=== PATIENT | female | born 1955 | race Caucasian/White ===

== ENCOUNTER 2021-04-05 13:41 | Outpatient (REF) | payer MEDICARE, MEDICAID, SELFPAY ==
[2021-04-07 14:12] LABS: COVID-19 RT-PCR UVMMC Result Negative (Negative)
== END 2021-04-05 13:42 | disposition home or self-care (01) ==
LOC: NCHCN 13:41
PROVIDERS: PCP Physician Assistant; Visit Provider Physician Assistant
DX: Z20.822 Contact with and (suspected) exposure to COVID-19 (principal)
CPT/HCPCS: U0003

== ENCOUNTER 2021-05-19 15:14 | Outpatient (REF) | payer MEDICARE, MEDICAID, SELFPAY ==
[2021-05-20 07:58] LABS: Calcium 9.3 mg/dL (8.5-10.1)
[2021-05-20 07:59] LABS: Anion Gap 10.7 mmol/L (3-11); BUN 13 mg/dL (7-18); CO2 27.3 mmol/L (21.0-32.0); CREATININE 0.8 mg/dL (0.55-1.02); Calculated LDL 119 mg/dL (<100); Chloride 108 mmol/L (98-107); Cholesterol 220 mg/dL (<200); Glucose 105 mg/dL (74-106); HDL Cholesterol 78 mg/dL (40-60); Potassium 4.1 mmol/L (3.5-5.1); Sodium 146 mmol/L (136-145); Triglyceride 116 mg/dL (<150)
== END 2021-05-19 15:15 | disposition home or self-care (01) ==
LOC: NCHCN 15:14
PROVIDERS: PCP Physician Assistant; Visit Provider Physician Assistant
DX: G25.0 Essential tremor (principal); F32.9 Major depressive disorder, single episode, unspecified; G43.909 Migraine, unspecified, not intractable, without status migrainosus; Z87.898 Personal history of other specified conditions; Z13.220 Encounter for screening for lipoid disorders
CPT/HCPCS: 80048; 80061

== ENCOUNTER 2023-05-25 09:38 | Outpatient (REF) | payer MEDICARE, MEDICAID, SELFPAY ==
[2023-05-25 19:04] LABS: Hemoglobin A1C 5.1 % (<5.7)
[2023-05-25 19:12] LABS: ALT 23 U/L (14-59); AST 17 U/L (15-37); Albumin 3.7 g/dL (3.4-5.0); Alkaline Phosphatase 76 U/L (46-116); Anion Gap 7.5 mmol/L (3-11); BUN 14 mg/dL (7-18); Bilirubin, Total 0.4 mg/dL (0.2-1.0); CO2 30.5 mmol/L (21.0-32.0); CREATININE 0.8 mg/dL (0.55-1.02); Calcium 9.6 mg/dL (8.5-10.1); Calculated LDL 89 mg/dL (<100); Chloride 109 mmol/L (98-107); Cholesterol 193 mg/dL (<200); Estimated GFR 80.71 (mL/min/1.73m2); Glucose 86 mg/dL (74-106); HDL Cholesterol 81 mg/dL (40-60); Potassium 4.2 mmol/L (3.5-5.1); Sodium 147 mmol/L (136-145); Total Protein 6.8 g/dL (6.4-8.2); Triglyceride 119 mg/dL (<150)
== END 2023-05-25 09:39 | disposition home or self-care (01) ==
LOC: NCHCN 09:38
PROVIDERS: PCP Physician Assistant; Visit Provider Physician Assistant
DX: E78.5 Hyperlipidemia, unspecified (principal); R79.89 Other specified abnormal findings of blood chemistry
CPT/HCPCS: 80053; 80061; 83036

== ENCOUNTER 2024-05-28 09:28 | Outpatient (REF) | payer MEDICARE, MEDICAID, SELFPAY ==
--- OUTSIDE RECORDS SUMMARY | 2024-05-28 09:31 | XMS_ITS | Encounter Summary ---
Author Organization [facility] Address [address] [place] [address] Care Team Providers Care Physical Sciences Instructor Name Role Phone Unknown, Provider Primary Care Provider Kaelyn Cardona Primary Care Provider + Encounter Details Date Type Department Care Team (Late st Contact Info) Description 04/06/2021 Lab Requisition [facility] Pathology & Laboratory Medicine - [address] [address] Outr Resulting Lab, Provider Social History Tobacco Use Types Packs/Day Years Used Date Smoking Tobacco: Never Assessed Comments Unknown Sex and Gender Information Value Date Recorded Sex Assigned at Not on file Legal Sex Female 18:02 EST Gender Identity Not on file Sexual Orientation Not on file documented as of this encounter Plan of Treatment Not on file documented as of this encounter Procedures Procedure Name Priority Date/Time Associated Diagnosis Comments ZZCOVID-19 TEST [facility] PCR Today 04/05/2021 9:00 EDT COVID-19 TESTING Routine 04/05/2021 9:00 EDT documented in this encounter Results * COVID-19 TEST [facility] PCR (04/05/2021 9:00 EDT) Swab ENTIRE NASOPHARYNX / Unknown 04/05/2021 9:00 EDT 04/06/2021 16:17 EDT us Provider Outr Resulting Lab MICROBIOLOGY - GENER AL ORDERABLES Final Result [facility] [address] [place] [address] * COVID-19 TESTING (04/05/2021 9:00 EDT) COVID-19 rt-PCR Result Negative Negative 04/07/2021 14:05 EDT [facility] Comment: This test has not been FDA cleared or approved. This test has been authorized by FDA under an EUA for use by authorized laboratories. This test has been authorized only for detection of nucleic acid from 2019-nCoV, not for any other viruses or pathogens. This test is only authorized for the duration of the declaration that circumstances exist justifying the authorization of emergency use of in vitro diagnostic tests for detection and/or diagnosis of 2019-nCoV under section 564(b)(1) of Act, 21 U.S.C ?? 360bbb-3(b) (1), unless the authorization is terminated or revoked sooner. Negative results do not preclude 2019-nCoV infection and should not be used as the sole basis for treatment or other patient management decisions. Negative results must be combined with clinical observations, patient history, and epidemiological information. This test was developed and its performance characteristics determined by [facility]. It has not been cleared or approved by the US Food and Drug Administration. FDA does not require this test to go through premarket FDA review. This test is used for clinical purposes. It should not be regarded as investigational or for research. This laboratory is certified under the Clinical Laboratory Improvement Amendments (CLIA) as qualified to perform high complexity clinical laboratory testing. This test is based on the [facility] COVID-19 Emergency Use Authorization (EUA) assay, with minor modification as defined by the FDA Performed on the Temporal Powero 7 Pro RT-PCR System. Performing Lab [facility] 04/07/2021 14:05 EDT [facility] Swab 04/05/2021 9:00 EDT 04/06/2021 16:17 EDT us Provider Outr Resulting Lab MICROBIOLOGY - GENER AL ORDERABLES Final Result [facility] [address] [place] [address] documented in this encounter Visit Diagnoses Not on filedocumented in this encounter Care Teams Physical Sciences Instructor Relationship Specialty Start Date End Date Unknown, Provider, PCP - General 05/14/15 07/09/22 Kaelyn Tsang PA [address] [place] [id number] PCP - General 07/10/22 documented as of this encounter
--- OUTSIDE RECORDS SUMMARY | 2024-05-28 09:31 | XMS_ITS | Encounter Summary ---
Author Organization [facility] Address [address] [place] [address] Care Team Providers Care Record Systems Analyst Name Role Phone Unavailable Primary Care Provider Unavailabl e Encounter Details Date Type Department Care Team (Late st Contact Info) Description 12/12/2002 Results Only [facility] conversion [address] [place] [address] Kian Canseco MD Social History Tobacco Use Types Packs/Day Years [...] Procedure Name Priority Date/Time Associated Diagnosis Comments CYTOPATHOLOGY Routine 12/12/2002 0:00 EDT documented in this encounter Results * CYTOPATHOLOGY (12/12/2002 0:00 EDT) Pathology Report: CYTOPATHOLOGY REPORT Reports generated via electronic interface contain original data; however they are lacking the format of the original report. Caution should be taken when reading/interpreti ng unformatted reports. Name: ? NICANOR SEGOVIA ? Accession #: ? [id number] : ? 1955 (Age: 47) ??F ?Collect Date: ? 12/12/2002 Location: ? [facility] ? Receive Date: ? 12/16/2002 Provider: ?KIAN CANSECO MD Copy to: ? Specimen/Source: ?ThinPrep Pap Test, Cervix/Endocervix Last Menstrual Period: ? 11/06/02 Previous Gynecologic Pathology: ? Yes: Atypia HSIL: 1980 ASC-US: Treatment History: ? 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 HPVA - HPV testing requested if ASC-US on the current ThinPrep Pap test. ? SPECIMEN ADEQUACY ? Satisfactory for Evaluation - transformation zone component present GENERAL CATEGORIZATION ? Negative for Intraepithelial Lesion or Malignancy INTERPRETATION ? 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 ? Document reviewed and electronically signed by: ? Eddy Goff, YOLY(ASCP) ? Report Date: ??12/18/2002 09:09 End of Report [facility] 12/12/2002 12/16/2002 us Kian Canseco MD PATHOLOGY ORDERABLES Final Res ult [facility] [address] [place] [address] documented in this encounter Visit Diagnoses Not on filedocumented in this encounter
--- OUTSIDE RECORDS SUMMARY | 2024-05-28 09:31 | XMS_ITS | Encounter Summary ---
Author Organization [facility] Address [address] [place] [address] Care Team Providers Care Outpatient Admitting Clerk Name Role Phone Unavailable Primary Care Provider Unavailabl e Encounter Details Date Type Department Care Team (Late st Contact Info) Description 12/16/2003 Results Only [facility] conversion [address] [place] [address] Kian Canseco MD Social History Tobacco Use [...] Priority Date/Time Associated Diagnosis Comments CYTOPATHOLOGY Routine 12/16/2003 0:00 EDT documented in this encounter Results * CYTOPATHOLOGY (12/16/2003 0:00 EDT) Pathology Report: CYTOPATHOLOGY REPORT Reports generated via electronic interface contain original data; however they are lacking the format of the original report. Caution should be taken when reading/interpreti ng unformatted reports. Name: ? NICANOR SEGOVIA ? Accession #: ? [id number] : ? 1955 (Age: 48) ??F ?Collect Date: ? 12/16/2003 Location: ? [facility] ? Receive Date: ? 12/18/2003 Provider: ?KIAN CANSECO MD Copy to: ? Specimen/Source: ?ThinPrep Pap Test, Cervix/Endocervix Last Menstrual Period: ? 11/26/03 Other: ? HPVA - HPV testing requested if ASC-US on the current ThinPrep Pap test. ? SPECIMEN ADEQUACY ? Satisfactory for Evaluation - transformation zone component present GENERAL CATEGORIZATION ? Negative for Intraepithelial Lesion or Malignancy ? Document reviewed and electronically signed by: ? YOLY De Dios(ASCP) ? Report Date: ??12/23/2003 09:52 End of Report [facility] 12/16/2003 12/18/2003 us Kian Canseco MD PATHOLOGY ORDERABLES Final Res ult [facility] [address] [place] [address] documented in this encounter Visit Diagnoses Not on filedocumented in this encounter
--- OUTSIDE RECORDS SUMMARY | 2024-05-28 09:31 | XMS_ITS | Encounter Summary ---
Author Organization [facility] Address [address] [place] [address] Care Team Providers Care Rn Imaging Name Role Phone Unavailable Primary Care Provider Unavailabl e Encounter Details Date Type Department Care Team (Late st Contact Info) Description 10/03/2000 Results Only [facility] conversion [address] [place] [address] Kian Canseco MD Social History Tobacco Use [...] Priority Date/Time Associated Diagnosis Comments CYTOPATHOLOGY Routine 10/03/2000 0:00 EST documented in this encounter Results * CYTOPATHOLOGY (10/03/2000 0:00 EST) Pathology Report: CYTOPATHOLOGY REPORT Reports generated via electronic interface contain original data; however they are lacking the format of the original report. Caution should be taken when reading/interpreti ng unformatted reports. Name: ? NICANOR SEGOVIA ? Accession #: ? [id number] : ? 1955 (Age: 45) ??F ?Collect Date: ? 10/03/2000 Location: ? [facility] ? Receive Date: ? 10/06/2000 Provider: ?KIAN CANSECO MD Copy to: ? Specimen/Source: ?ThinPrep Pap Test, Cervix/Endocervix Last Menstrual Period: ? 09/19/00 Previous Gynecologic Pathology: ? HSIL ASC-US: , Treatment History: ? Cone biopsy: 1980 ? SPECIMEN ADEQUACY ? Satisfactory for evaluation. GENERAL CATEGORIZATION ? Within Normal Limits ? Document reviewed and electronically signed by: ? Morena Lindsey, ??SCT(ASCP) ? Report Date: ??10/09/2000 08:17 End of Report [facility] 10/03/2000 10/06/2000 us Kian Canseco MD PATHOLOGY ORDERABLES Final Res ult [facility] [address] [place] [address] documented in this encounter Visit Diagnoses Not on filedocumented in this encounter
--- OUTSIDE RECORDS SUMMARY | 2024-05-28 09:31 | XMS_ITS | Encounter Summary ---
Author Organization [facility] Address [address] [place] [address] Care Team Providers Care Rfid Strategist Name Role Phone Unknown, Provider Primary Care Provider Kaelyn Cardona Primary Care Provider + Encounter Details Date Type Department Care Team (Latest Contact Info) Description 04/09/2020 Lab Requisition [facility] Pathology & Laboratory Medicine - [facility] [address] [place] [address] Chon Bajwa MD [address] [place] [id number] Encounter for gynecological examination (general) (routine) without abnormal findings; Encounter for screening for human papillomavirus (HPV) Social History Tobacco Use Types Packs/Day Years [...] Procedure Name Priority Date/Time Associated Diagnosis Comments PAP TEST Today 04/09/2020 14:24 EDT HPV DNA DETECTION WITH GENOTYPING, PCR Today 04/09/2020 14:24 EDT documented in this encounter Results * HUMAN PAPILLOMAVIRUS (HPV) DETECTION-HIGH RISK TYPES (04/09/2020 14:24 EDT) HPV other High Risk types, PCR Negative Negative 04/16/2020 15:31 EDT [facility] Comment:No E6 or E7 mRNA is detected from HPV types 16,18,31,33,35,39,45,51,52,56,58,59,66, and 68 by blending tank tender helper mediated amplification. Papanicolaou smear specimen (specimen) CERVIX UTERI STRUCTURE / Unknown 04/09/2020 14:24 EDT 04/15/2020 12:48 EDT Chon Bajwa MD MICROBIOLOGY - GENERAL ORDERABLE S Final Result [facility] [address] [place] [address] * PAP TEST (04/09/2020 14:24 EDT) Specimens A. Cervix and/or Endocervix , ThinPrep Imaging System with Manual Evaluation 04/16/2020 15:31 [facility] Specimen Adequacy Satisfactory for Evaluation - transformation zone component present 04/16/2020 15:31 [facility] General Categorization Negative for intraepithelial lesion or malignancy 04/16/2020 15:31 [facility] Attestation . 04/16/2020 15:31 [facility] at 1531 Clinical History Clinical History, Signs, Symptoms, Chief Complaint, Pertaining to This Order: See below Other Clinical History/Order Comments: 05/24 neg/neg 04/16/2020 15:31 [facility] HPV The result for the Human Papillomavirus (HPV) Detection-High Risk Types is Negative. No E6 or E7 mRNA is detected from HPV types 16,18,31,33,35,39 ,45,51,52,56,58,5 9,66, and 68 by blending tank tender helper mediated amplification.Nayeli ting was performed on specimen [id number] and was resulted on 04/16/2020 1525 EDT by ELIZABETH, LAB INSTRUMENT RESULTS IN 04/16/2020 15:31 T [facility] Performing Lab [facility] 04/16/2020 15:31 [facility] Scanned Images 04/16/2020 15:31 [facility] Papanicolaou smear specimen (specimen) CERVIX UTERI STRUCTURE / Unknown 04/09/2020 14:24 EDT 04/10/2020 10:37 EDT us Chon Bajwa MD PATHOLOGY ORDERABLES Final Resul t [facility] [address] [place] [address] documented in this encounter Visit Diagnoses Diagnosis Encounter for gynecological examination (general) (routine) without abnormal findings Encounter for screening for human papillomavirus (HPV) Special screening examination for human papillomavirus (HPV) documented in this encounter Care Teams Rfid Strategist Relationship Specialty Start Date End Date Unknown, Provider, PCP - General 05/14/15 07/09/22 Kaelyn Tsang PA [address] [place] [id number] PCP - General 07/10/22 documented as of this encounter
--- OUTSIDE RECORDS SUMMARY | 2024-05-28 09:31 | XMS_ITS | Encounter Summary ---
Author Organization [facility] Address [address] [place] [address] Care Team Providers Care Automobile Technician Name Role Phone Unavailable Primary Care Provider Unavailabl e Encounter Details Date Type Department Care Team (Late st Contact Info) Description 02/13/2007 Results Only [facility] conversion [address] [place] [address] Kian Canseco MD Social History Tobacco Use [...] Procedure Name Priority Date/Time Associated Diagnosis Comments HPV DETECTION, HIGH RISK TYPES Routine 02/13/2007 14:52 EDT CYTOPATHOLOGY Routine 02/13/2007 0:00 EDT documented in this encounter Results * HUMAN PAPILLOMA VIRUS DNA TEST (02/13/2007 14:52 EDT) Specimen Description Cervix, ThinPrep vial [facility] Result Negative for HPV types 16, 18, 31, 33, 35, 39, 45, 51, 52, 56, 58, 59, and 68. [facility] Report Status Final [id number] [facility] 02/13/2007 14:5 2 EDT 02/20/2007 14:52 EDT Kian Canseco MD MICROBIOLOGY - GENERAL ORDERAB LES Final Result [facility] [address] [place] [address] * CYTOPATHOLOGY (02/13/2007 0:00 EDT) Pathology Report: CYTOPATHOLOGY REPORT Reports generated via electronic interface contain original data; however they are lacking the format of the original report. Caution should be taken when reading/interpreti ng unformatted reports. Name: ? NICANOR SEGOVIA ? Accession #: ? [id number] : ? 1955 (Age: 51) ??F ?Collect Date: ? 02/13/2007 Location: ? [facility] ? Receive Date: ? 02/15/2007 Provider: ?KIAN CANSECO MD Copy to: ? Specimen/Source: ?ThinPrep Pap Test, Cervix/Endocervix, processed on [employer] ThinPrep Imaging System, with manual evaluation Last Menstrual Period: ? Other: ? HPVDX - HPV testing requested regardless of diagnosis on current ThinPrep Pap test. Additional clinical information: previous paps WNL ? SPECIMEN ADEQUACY ? Satisfactory for Evaluation - transformation zone component absent GENERAL CATEGORIZATION ? Negative for Intraepithelial Lesion or Malignancy ? Document reviewed and electronically signed by: ? YOLY Hardy(ASCP) ? Report Date: ??02/20/2007 10:11 End of Report [facility] 02/13/2007 02/15/2007 us Kian Canseco MD PATHOLOGY ORDERABLES Final Res ult Performing Organization Address City/State/[facility] Co de Phone Number [facility] [address] [place] [address] documented in this encounter Visit Diagnoses Not on filedocumented in this encounter
--- OUTSIDE RECORDS SUMMARY | 2024-05-28 09:31 | XMS_ITS | Encounter Summary ---
Author Organization [facility] Address [address] [place] [address] Care Team Providers Care Mannequin Mold Maker Name Role Phone Unavailable Primary Care Provider Unavailabl e Encounter Details Date Type Department Care Team (Late st Contact Info) Description 02/23/2010 Results Only [facility] Services - [facility] [address] [place] [address] Kian Canseco MD Social History Tobacco Use [...] Comments HPV DETECTION, HIGH RISK TYPES Routine 02/23/2010 8:54 EDT CYTOPATHOLOGY Routine 02/23/2010 0:00 EDT documented in this encounter Results * HUMAN PAPILLOMA VIRUS DNA TEST (02/23/2010 8:54 EDT) Specimen Description Cervix, ThinPrep vial [facility] Result Negative for HPV types 16, 18, 31, 33, 35, 39, 45, 51, 52, 56, 58, 59, and 68. [facility] Report Status Final 03/02/2010 [facility] 02/23/2010 8:54 EDT 02/26/2010 8:54 EDT Kian Canseco MD MICROBIOLOGY - GENERAL ORDERAB LES Final Result [facility] [address] [place] [address] * CYTOPATHOLOGY (02/23/2010 0:00 EDT) Pathology Report: CYTOPATHOLOGY REPORT ? Reports generated via electronic interface contain original data; ? however they are lacking the format of the original report. ? Caution should be taken when reading/interpreti ng unformatted reports. ? Name: ? NICANOR SEGOVIA ? Accession #: ? [id number] ? : ? 1955 (Age: 54) ??F ?Collect Date: ? 02/23/2010 ? Location: ? [facility] ? Receive Date: ? 02/24/2010 ? Provider: ?KIAN B CANSECO MD ? Copy to: ? Specimen/Source: ?Pap Test, Cervix/Endocervix, ThinPrep Imaging System ? with manual evaluation ? Last Menstrual Period: ? Other: ? HPVDX - HPV testing requested regardless of diagnosis on current ThinPrep Pap ?? test. ? SPECIMEN ADEQUACY ? Satisfactory for Evaluation ? - transformation zone component absent ? GENERAL CATEGORIZATION ? Negative for Intraepithelial Lesion or Malignancy ? Document reviewed and electronically signed by: ? Cortes Stumler, [place](ASCP) ? Report Date: ??02/25/2010 12:43 ? End of Report ? [facility] 02/23/2010 02/24/2010 us Kian Canseco MD PATHOLOGY ORDERABLES Final Res ult [facility] [address] [place] [address] documented in this encounter Visit Diagnoses Not on filedocumented in this encounter
--- OUTSIDE RECORDS SUMMARY | 2024-05-28 09:31 | XMS_ITS | Encounter Summary ---
Author Organization [facility] Address [address] [place] [address] Care Team Providers Care Works Manager Name Role Phone Unavailable Primary Care Provider Unavailabl e Encounter Details Date Type Department Care Team (Late st Contact Info) Description 02/01/2005 Results Only [facility] conversion [address] [place] [address] Kian Canseco MD Social History Tobacco Use [...] Priority Date/Time Associated Diagnosis Comments CYTOPATHOLOGY Routine 02/01/2005 0:00 EDT documented in this encounter Results * CYTOPATHOLOGY (02/01/2005 0:00 EDT) Pathology Report: CYTOPATHOLOGY REPORT Reports generated via electronic interface contain original data; however they are lacking the format of the original report. Caution should be taken when reading/interpreti ng unformatted reports. Name: ? NICANOR SEGOIVA ? Accession #: ? [id number] : ? 1955 (Age: 49) ??F ?Collect Date: ? 02/01/2005 Location: ? [facility] ? Receive Date: ? 02/03/2005 Provider: ?KIAN CASNECO MD Copy to: ? Specimen/Source: ?ThinPrep Pap Test, Cervix/Endocervix, processed on [employer] ThinPrep Imaging System, with manual evaluation Last Menstrual Period: ? 12/23/04 Other: ? HPVA - HPV testing requested if ASC-US on the current ThinPrep Pap test. ? SPECIMEN ADEQUACY ? Satisfactory for Evaluation - transformation zone component present GENERAL CATEGORIZATION ? Negative for Intraepithelial Lesion or Malignancy INTERPRETATION ? 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 ? Document reviewed and electronically signed by: ? YOLY Harrell(ASCP) ? Report Date: ??02/10/2005 10:07 End of Report [facility] 02/01/2005 02/03/2005 us Kian Canseco MD PATHOLOGY ORDERABLES Final Res ult [facility] [address] [place] [address] documented in this encounter Visit Diagnoses Not on filedocumented in this encounter
--- OUTSIDE RECORDS SUMMARY | 2024-05-28 09:31 | XMS_ITS | Encounter Summary ---
Author Organization [facility] Address [address] [place] [address] Care Team Providers Care Consumer Loan Underwriter Name Role Phone Unavailable Primary Care Provider Unavailabl e Encounter Details Date Type Department Care Team (Latest Contact Info) Description 02/13/2007 16:14 EDT Hospital Encounter [facility] - Other [address] [place] [address] Kian Cabrera MD Discharge Disposition: Home or Self Care Social History Tobacco Use Types Packs/Day Years Used Date Smoking Tobacco: Never Assessed Comments Unknown Sex and Gender Information Value Date Recorded Sex Assigned at Not on file Legal Sex Female 18:02 EST Gender Identity Not on file Sexual Orientation Not on file documented as of this encounter Discharge Disposition Disposition Code Departure Means Destination Home or Self Care documented in this encounter Plan of Treatment Not on file documented as of this encounter Visit Diagnoses Not on filedocumented in this encounter
--- OUTSIDE RECORDS SUMMARY | 2024-05-28 09:31 | XMS_ITS | Clinical Summary ---
Author Organization [facility] Address [address] [place] [address] Care Team Providers Care Human Resources Director Name Role Phone Kaelyn Tsang Primary Care Provider + Social History Tobacco Use Types Packs/Day Years Used Date Smoking Tobacco: Never Assessed Comments Unknown Sex and Gender Information Value Date Recorded Sex Assigned at Not on file Legal Sex Female 18:02 EST Gender Identity Not on file Sexual Orientation Not on file Plan of Treatment Health Maintenance Due Date Last Done Comments Hepatitis C Screen 1955 Fall Risk Screening 2021 COVID-19 Vaccine (2023- season) 2024 RSV Immunization ( o r 60+ Years) (1 - 1-dose 75+ series) 2031 Insurance [place] Care Teams Human Resources Director Relationship Specialty Start Date End Date Kaelyn Tsang PA [address] [place] [id number] PCP - General 07/10/22
--- OUTSIDE RECORDS SUMMARY | 2024-05-28 09:31 | XMS_ITS | Encounter Summary ---
Author Organization [facility] Address [address] [place] [address] Care Team Providers Care Clothespin Drier Operator Name Role Phone Kaelyn Tsang Primary Care Provider + Encounter Details Date Type Department Care Team (Late st Contact Info) Description 07/21/2022 Lab Requisition [facility] Pathology & Laboratory Medicine - [facility] [address] [place] [address] Chon Bajwa MD [address] [place] [address] [facility] [address] [place], [place] [id number] Encounter for other general examination Social History Tobacco Use Types Packs/Day Years [...] Procedure Name Priority Date/Time Associated Diagnosis Comments SURGICAL PATHOLOGY Today 07/21/2022 14 :04 EST documented in this encounter Results * SURGICAL PATHOLOGY (07/21/2022 14:04 EST) Note to Patient The following pathology results have been interpreted by your pathologist and may be available to you before your health provider has had the opportunity to review them. Please allow time for your provider to receive these results and explore management options, if applicable. 07/26/2022 11:11 EST [facility] Final Diagnosis A. ENDOMETRIUM, BIOPSY: - Atrophic endometrium. 07/26/2022 11:11 EST [facility] Attestation There was significant resident/fellow involvement in the diagnostic evaluation of this case. By the signature below, the attending physician certifies that they have personally conducted a gross and/or microscopic examination of the described specimens and rendered or confirmed the above diagnosis. 07/26/2022 11:11 [facility] at [address]10 Clinical History Fluid in endometrial cavity 07/26/2022 11:11 [facility] Gross Description A. Received in formalin labelled with proper patient identification (initials B, V) and not otherwise specified is an aggregate of clear translucent mucinous material that measures 1.0 x 0.8 x 0.2 cm. The specimen is submitted entirely in A1. Sallie De La Fuente 07/22/2022 9:14 07/26/2022 11:11 [facility] Resident/Zafar w: Gus Velazquez 07/26/2022 11:11 [facility] Performing Lab [facility] 07/26/2022 11:11 [facility] Scanned Images 07/26/2022 11:11 [facility] Tissue ENTIRE ENDOMETRIUM / Unknown 07/21/2022 14:04 EST 07/22/2022 8:13 EST us Chon Bajwa MD PATHOLOGY ORDERABLES Final Resul t [facility] [address] [place] [address] documented in this encounter Visit Diagnoses Diagnosis Encounter for other general examination documented in this encounter Care Teams Clothespin Drier Operator Relationship Specialty Start Date End Date Kaelyn Tsang PA [address] [place] [id number] PCP - General 07/10/22 documented as of this encounter
--- OUTSIDE RECORDS SUMMARY | 2024-05-28 09:31 | XMS_ITS | Encounter Summary ---
Author Organization [facility] Address [address] [place] [address] Care Team Providers Care Miter Grinder Operator Name Role Phone Unknown, Provider Primary Care Provider Unava ilable Encounter Details Date Type Department Care Team (Late st Contact Info) Description 06/08/2015 Results Only [facility] [phone] Unknown, Provider, Social History Tobacco Use Types Packs/Day Years [...] Name Priority Date/Time Associated Diagnosis Comments PAP TEST- RESULT ONLY Routine 06/08/2015 0:00 EST documented in this encounter Results * PAP TEST- RESULT ONLY (06/08/2015 0:00 EST) Pathology Report: CYTOPATHOLOGY REPORT Reports generated via electronic interface contain original data; however they are lacking the format of the original report. Caution should be taken when reading/interpreti ng unformatted reports. Name: ? NICANOR SEGOVIA ? Accession #: ? [id number] ? : ? 1955 (Age: 60) ??F ?Collect Date: ? 06/08/2015 ? Location: ? [facility] ? Receive Date: ? 06/09/2015 ? Provider: LUISA BAJWA MD Copy to: ? Final Report SPECIMEN ADEQUACY ? Satisfactory for Evaluation - transformation zone component present GENERAL CATEGORIZATION ? Negative for Intraepithelial Lesion or Malignancy ?? Last Menstrual Period: 2007 Other: Additional clinical information: previous pap wnl 02/13, 02/16 Specimen/Source: ??Pap Test, Cervix/Endocervix, ThinPrep Imaging System with manual evaluation Document reviewed and electronically signed by: ? Duane Roa, [place](ASCP) ? Report ??Date: 06/10/2015 12:02 HPV with Pap Test ? Date Ordered: ? 06/10/2015 ? Status: ?? Signed Out ?Date Complete: ? 06/11/2015 ? By: ??System Interface ? Date Reported: ? 06/11/2015 ? Interpretation RESULT: Negative for HPV. No E6 or E7 mRNA is detected from HPV types 16,18,31,33,35, 39,45,51,52,56,58, 59,66, and 68 by pump press operator mediated amplification. Comments Document reviewed and electronically signed by: ? System Interface ? Report date: 06/11/2015 By the signature above, the attending physician certifies that he/she has personally conducted a gross and/or microscopic examination of the described specimens and rendered or confirmed the above diagnosis. End of Report [facility] 06/08/2015 06/09/2015 us Luisa Bajwa MD PATHOLOGY ORDERABLES Final Resul t [facility] [address] [place] [address] documented in this encounter Visit Diagnoses Not on filedocumented in this encounter Care Teams Miter Grinder Operator Relationship Specialty Start Date End Date Unknown, Provider, PCP - General 05/14/15 07/09/22 documented as of this encounter
--- OUTSIDE RECORDS SUMMARY | 2024-05-28 09:31 | XMS_ITS | Encounter Summary ---
Author Organization [facility] Address [address] [place] [address] Care Team Providers Care Director Of Services Name Role Phone Unavailable Primary Care Provider Unavailabl e Encounter Details Date Type Department Care Team (Late st Contact Info) Description 02/03/2006 Results Only [facility] conversion [address] [place] [address] Kian Canseco MD Social History Tobacco Use [...] Priority Date/Time Associated Diagnosis Comments CYTOPATHOLOGY Routine 02/03/2006 0:00 EDT documented in this encounter Results * CYTOPATHOLOGY (02/03/2006 0:00 EDT) Pathology Report: CYTOPATHOLOGY REPORT Reports generated via electronic interface contain original data; however they are lacking the format of the original report. Caution should be taken when reading/interpreti ng unformatted reports. Name: ? NICANOR SEGOVIA ? Accession #: ? [id number] : ? 1955 (Age: 50) ??F ?Collect Date: ? 02/03/2006 Location: ? [facility] ? Receive Date: ? 02/06/2006 Provider: ?KIAN CANSECO MD Copy to: ? Specimen/Source: ?ThinPrep Pap Test, Cervix/Endocervix, processed on [employer] ThinPrep Imaging System, with manual evaluation Last Menstrual Period: ? Other: ? HPVA - HPV testing requested if ASC-US on the current ThinPrep Pap test. Additional clinical information: Previous paps WNL ? SPECIMEN ADEQUACY ? Satisfactory for Evaluation - transformation zone component absent GENERAL CATEGORIZATION ? Negative for Intraepithelial Lesion or Malignancy ? Document reviewed and electronically signed by: ? Nasreen Jacinto, [facility](ASCP) ? Report Date: ??02/08/2006 12:10 End of Report [facility] 02/03/2006 02/06/2006 us Kian Canseco MD PATHOLOGY ORDERABLES Final Res ult [facility] [address] [place] [address] documented in this encounter Visit Diagnoses Not on filedocumented in this encounter
--- OUTSIDE RECORDS SUMMARY | 2024-05-28 09:31 | XMS_ITS | Encounter Summary ---
Author Organization [facility] Address [address] [place] [address] Care Team Providers Care Hvac Designer Name Role Phone Unavailable Primary Care Provider Unavailabl e Encounter Details Date Type Department Care Team (Late st Contact Info) Description 11/06/2001 Results Only [facility] [place] conversion [address] [place] [address] Kian Canseco MD Social History Tobacco Use [...] Priority Date/Time Associated Diagnosis Comments CYTOPATHOLOGY Routine 11/06/2001 0:00 EDT documented in this encounter Results * CYTOPATHOLOGY (11/06/2001 0:00 EDT) Pathology Report: CYTOPATHOLOGY REPORT Reports generated via electronic interface contain original data; however they are lacking the format of the original report. Caution should be taken when reading/interpreti ng unformatted reports. Name: ? NICANOR SEGOVIA ? Accession #: ? [id number] : ? 1955 (Age: 46) ??F ?Collect Date: ? 11/06/2001 Location: ? [facility] ? Receive Date: ? 11/08/2001 Provider: ?KIAN CANSECO MD Copy to: ? Specimen/Source: ?ThinPrep Pap Test, Cervix/Endocervix Last Menstrual Period: ? 10/28/01 Other: ? Client ID#: [id number] ? SPECIMEN ADEQUACY ? Satisfactory for Evaluation - transformation zone component present GENERAL CATEGORIZATION ? Negative for Intraepithelial Lesion or Malignancy ? Document reviewed and electronically signed by: ? Paula West, CT(ASCP)(IAC) ? Report Date: ??11/12/2001 10:49 End of Report [facility] 11/06/2001 11/08/2001 us Kian Canseco MD PATHOLOGY ORDERABLES Final Res ult [facility] [address] [place] [address] documented in this encounter Visit Diagnoses Not on filedocumented in this encounter
--- OUTSIDE RECORDS SUMMARY | 2024-05-28 09:31 | XMS_ITS | Encounter Summary ---
Author Organization [facility] Address [address] [place] [address] Care Team Providers Care Coffee Blender Name Role Phone Unavailable Primary Care Provider Unavailabl e Encounter Details Date Type Department Care Team (Late st Contact Info) Description 10/04/1999 Results Only [facility] conversion [address] [place] [address] Kian Canseco MD Social History Tobacco Use [...] Priority Date/Time Associated Diagnosis Comments CYTOPATHOLOGY Routine 10/04/1999 13:35 EST documented in this encounter Results * CYTOPATHOLOGY (10/04/1999 13:35 EST) Pathology Report: CYTOPATHOLOGY REPORT Reports generated via electronic interface contain original data; however they are lacking the format of the original report. Caution should be taken when reading/interpreti ng unformatted reports. Name: ? NICANOR SEGOVIA ? Accession #: ? [id number] : ? 1955 (Age: 44) ??F ?Collect Date: ? 10/04/1999 Location: ?Receive Date: ? 10/04/1999 Provider: ?KIAN CANSECO MD Copy to: ?KIAN CANSECO MD ? Specimen/Source: ?Pap Smear (One Slide) Last Menstrual Period: ? GYNECOLOGIC ??CYTOPATHOLOGY ??REPORT Name: NICANOR SEGOVIA ? [facility] : 1955 ?? 44Y F ?Client ID: [id number] SS#: ? Clinician: Jordy CANSECO MD Location: [facility] ??Copy to: ?? Specimen: ?Pap Smear (One Slide) ? Source: Cervix/Endocervix ?Collected: 10/01/99 ? Received: 10/04/1999 ?LMP: 09/19/99 ? Hormone Therapy: Yes ? : No ? Radiation Therapy: No ?? Post : No ?Chemotherapy: No ?IUD: No ? Prev Abnormal Pap: Yes ?? 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 and ASCUS. ?(Blank marquez indicate information not provided on requisition) SPECIMEN ADEQUACY: ? Satisfactory For Evaluation ?? GENERAL CATEGORIZATION: ? WITHIN NORMAL LIMITS ? Reviewed And Electronically Signed By: ? Ernestina Veloz, CT(ASCP) ? Olga Elizalde, CT(ASCP) ? Report Date: ?? 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 ? Document reviewed and electronically signed by: ? Conversion ? Report Date: ??10/12/1999 00:00 End of Report [facility] 10/04/1999 13:3 5 EST 10/04/1999 13:36 EST us Kian Canseco MD PATHOLOGY ORDERABLES Final Res ult [facility] [address] [place] [phone] documented in this encounter Visit Diagnoses Not on filedocumented in this encounter
--- OUTSIDE RECORDS SUMMARY | 2024-05-28 09:31 | XMS_ITS | Referral Summary ---
Author Organization [facility] Address [address] [place] [address] Care Team Providers Care Drafter Electrical Name Role Phone Kaelyn Tsang Primary Care Provider + Social History Tobacco Use Types Packs/Day Years Used Date Smoking Tobacco: Never Assessed Comments Unknown Sex and Gender Information Value Date Recorded Sex Assigned at Not on file Legal Sex Female 18:02 EST Gender Identity Not on file Sexual Orientation Not on file Plan of Treatment Not on file Insurance [place] [employer] [place] Care Teams Drafter Electrical Relationship Specialty Start Date End Date Kaelyn Tsang PA [address] [place] [id number] PCP - General 07/10/22
[2024-05-28 20:15] LABS: ALT 27 U/L (14-59); AST 26 U/L (15-37); Albumin 3.5 g/dL (3.4-5.0); Alkaline Phosphatase 75 U/L (46-116); Anion Gap 8.5 mmol/L (3-11); BUN 14 mg/dL (7-18); Bilirubin, Total 0.59 mg/dL (0.2-1.0); CO2 28.5 mmol/L (21.0-32.0); Calcium 9.3 mg/dL (8.5-10.1); Chloride 110 mmol/L (98-107); Estimated GFR 61.36 (mL/min/1.73m2); Glucose 92 mg/dL (74-106); Potassium 4.1 mmol/L (3.5-5.1); Sodium 147 mmol/L (136-145)
[2024-05-29 19:10] LABS: Hepatitis C Ab w Rflx HCV PCR Negative (Negative)
== END 2024-05-28 09:29 | disposition home or self-care (01) ==
LOC: NCHCN 09:28
PROVIDERS: PCP Physician Assistant; Visit Provider Physician Assistant
DX: Z11.59 Encounter for screening for other viral diseases (principal); G43.909 Migraine, unspecified, not intractable, without status migrainosus
CPT/HCPCS: 80053; 86803

== ENCOUNTER 2025-05-30 09:49 | Outpatient (REF) | payer MEDICARE, MEDICAID, SELFPAY ==
[2025-05-30 19:45] LABS: ALT 15 U/L (10-49); AST 23 U/L (<34); Albumin 4.0 g/dL (3.4-5.0); Alkaline Phosphatase 69 U/L (46-116); Anion Gap 5.1 mmol/L (3-11); BUN 15 mg/dL (9-23); Bilirubin, Total 0.60 mg/dL (0.2-1.2); CO2 28.9 mmol/L (20.0-31.0); Calcium 9.0 mg/dL (8.3-10.6); Chloride 112 mmol/L (98-107); Glucose 87 mg/dL (74-106); Potassium 4.2 mmol/L (3.5-5.1); Sodium 146 mmol/L (136-145); Total Protein 6.5 g/dL (5.7-8.2)
== END 2025-05-30 09:50 | disposition home or self-care (01) ==
LOC: NCHCN 09:49
PROVIDERS: PCP Physician Assistant; Visit Provider Physician Assistant
DX: G43.909 Migraine, unspecified, not intractable, without status migrainosus (principal)
CPT/HCPCS: 80053